=== PATIENT | female | born 1995 | race African-American/Black ===

== ENCOUNTER 2018-11-28 22:36 | Emergency (ER) | payer OTHER ==
[~2018-11-28] VITALS: Ht 160 cm; Wt 54.4 kg
[2018-11-28 22:56] LABS: URINE BILIRUBIN NEGATIVE (Negative); URINE BLOOD NEGATIVE (Negative); URINE CLARITY CLEAR; URINE COLOR YELLOW; URINE GLUCOSE-RANDOM* NEGATIVE (Negative); URINE KETONES 2+ (Negative); URINE LEUKOCYTES-REFLEX TRACE (Negative); URINE NITRITE-REFLEX NEGATIVE (Negative); URINE PROTEIN (DIPSTICK) TRACE (Negative); URINE SPECIFIC GRAVITY >= 1.030 (1.005-1.035); URINE UROBILINOGEN 0.2 E.U./dl (0.2-1.0)
[2018-11-28] MEDS ORDERED: BUSPIRONE HCL10 MG PO (23:00)
[2018-11-28 23:16] LABS: BACTERIA 1-9 Few /HPF (None Seen); CASTS None Seen /LPF (None Seen); MUCUS 4-6 Moderate strn/LPF (None Seen); SQUAMOUS 4-10 Moderate /LPF (0-3); URINE RBC 3-10 Few /HPF (0-2); URINE WBC 6-15 Few /HPF (0-5)
[2018-11-29] MEDS ORDERED: BACTRIM DS TAB1 EACH PO (00:05)
[2018-11-29] MEDS ORDERED: ZOFRAN ODT4 MG PO (00:05)
[2018-11-29 00:56] VITALS: BP 100/69
== END 2018-11-29 01:05 | disposition home or self-care (01) ==
LOC: ER 22:36
PROVIDERS: Emergency Medicine; Nurse Practitioner Family
DX: R30.0 Dysuria (principal); M54.5 Low back pain